=== PATIENT | female | born 1965 | race Caucasian/White ===

== ENCOUNTER 2022-01-18 11:50 | Emergency (ER) | payer MEDICAID ==
[2022-01-18] MEDS ORDERED: Ketorolac 30 MG/ML SDV IVPUSH SCH (12:15)
[2022-01-18] MEDS ORDERED: Ketorolac 60 MG/2 ML SDV IM ONE (12:17)
== END 2022-01-18 12:38 | disposition home or self-care (01) ==
LOC: JD.ED 11:50
DX: H66.001 Acute suppurative otitis media without spontaneous rupture of ear drum, right ear (principal); H69.81 Other specified disorders of Eustachian tube, right ear; I10 Essential (primary) hypertension; Z88.5 Allergy status to narcotic agent; Z91.048 Other nonmedicinal substance allergy status
CPT/HCPCS: 96372; 99282; J1885; 99284

== ENCOUNTER 2024-05-18 08:41 | Day surgery (SDC) | payer MEDICAID ==
[~2024-05-18 08:41] MED LIST: Lidocaine 1% 5 ML VIAL ONE; Midazolam 1 MG/ML 2 ML SDV ONE; Propofol 200 MG/20 ML SDV ONE; Sodium Chloride 0.9% 10 ML Syringe FLUSH PRN; Sodium Chloride 0.9% 10 ML Syringe FLUSH SCH; fentaNYL 100 MCG/2 ML SDV ONE
[2024-05-18] MEDS: Scopalamine 1mg/3day Transdermal Patch TRDERM PRN (09:15)
[2024-05-18] MEDS ORDERED: Ondansetron 4 MG/2 ML SDV ONE (09:30)
[2024-05-18] MEDS ORDERED: Ketorolac 30 MG/ML SDV ONE (09:31)
[2024-05-18] MEDS: Lactated Ringers 1,000 ML IV SCH (09:35)
[2024-05-18] MEDS ORDERED: Lidocaine 1% with EPINEPHrine 1:100,000 20 ML MDV ONE (09:43)
[2024-05-18] MEDS ORDERED: Bupivacaine 0.5% 30 ML SDV ONE (09:44)
[2024-05-18] MEDS ORDERED: diphenhydrAMINE 50 MG/ML SDV ONE (09:56)
[2024-05-18] MEDS: Lidocaine 1% with EPINEPHrine 1:100,000 20 ML MDV ONE (10:28)
[2024-05-18] MEDS ORDERED: Dexamethasone 4 MG/ML 5 ML MDV ONE (10:30)
[2024-05-18] MEDS ORDERED: Propofol 200 MG/20 ML SDV ONE (10:56)
[2024-05-18 11:59] LABS: HEMOGLOBIN A1C 5.7 %
== END 2024-05-18 14:30 | disposition home or self-care (01) ==
LOC: JD.SDS 08:41
PROVIDERS: ATTEND Surgery
DX: K29.50 Unspecified chronic gastritis without bleeding (principal); B96.81 Helicobacter pylori [H. pylori] as the cause of diseases classified elsewhere; K20.90 Esophagitis, unspecified without bleeding; K63.89 Other specified diseases of intestine; K64.4 Residual hemorrhoidal skin tags; R68.81 Early satiety; L72.3 Sebaceous cyst; Z79.899 Other long term (current) drug therapy; Z91.09 Other allergy status, other than to drugs and biological substances
CPT/HCPCS: 11402; 36415; 43239; 45378; 83036; A9270; J1100; J1200; J2250; J2405; J2704; J3010; J7120; J0665; J1885; J3490